=== PATIENT | male | born 1965 | race Caucasian/White ===

== ENCOUNTER 2017-03-13 03:35 | Inpatient (IN) | payer MEDICARE, MEDICAID ==
[~2017-03-13] VITALS: Ht 180.3 cm; Wt 68.2 kg
[~2017-03-13 03:35] MED LIST: DIAZ5TAB4 PO; FLUO20CA39 PO; OMEP20TA5 PO; TOLT4CAP PO; TOPI25TA15 PO
[2017-03-13] MEDS ORDERED: normal saline 1000ML IV soln IV ONE (03:40)
[2017-03-13] MEDS ORDERED: diphenhydrAMINE 50 mg/ml inj IV ONE (04:25)
[2017-03-13 05:01] LABS: BASOPHILS # (AUTO) 0.1 X10'3 (0-0.2); BASOPHILS % (AUTO) 0.2 % (0-1); EOSINOPHILS % (AUTO) 0 % (0-6); HEMATOCRIT 37.4 % (42.0-52.0); HEMOGLOBIN 12.6 g/dl (14.0-17.9); LYMPHOCYTES # (AUTO) 1.2 X10'3 (1.1-4.8); LYMPHOCYTES % (AUTO) 3.4 % (21-51); MEAN CORPUSCULAR HEMOGLOBIN 31.2 PG (27.0-31.0); MEAN CORPUSCULAR HGB CONC 33.6 % (33.0-36.5); MEAN CORPUSCULAR VOLUME 92.8 FL (78-98); MEAN PLATELET VOLUME 7.7 FL (7.4-10.4); MONOCYTES # (AUTO) 1.6 X10'3 (0-0.9); MONOCYTES % (AUTO) 4.4 % (2-12); NEUTROPHILS # (AUTO) 32.5 X10'3 (1.8-7.7); PLATELET COUNT 385 X10'3 (140-440); RED BLOOD COUNT 4.03 X10'6 (4.70-6.10); RED CELL DISTRIBUTION WIDTH 13.6 % (11.5-14.5)
[2017-03-13 05:13] LABS: INR 1.2 INR; PARTIAL THROMBOPLASTIN TIME 31 SECONDS (22-32); PROTHROMBIN TIME 12.1 SECONDS (9.0-12.0)
[2017-03-13 05:17] LABS: ALANINE AMINOTRANSFERASE 37 U/L (12-78); ALBUMIN 2.4 G/DL (3.4-5.0); ALBUMIN/GLOBULIN RATIO 0.6 (1.1-1.5); ALKALINE PHOSPHATASE 178 IU/L (46-116); ANION GAP 9 (8-16); ASPARTATE AMINO TRANSFERASE 22 U/L (10-37); BILIRUBIN,TOTAL 0.6 MG/DL (0.1-1.0); BLOOD UREA NITROGEN 26 MG/DL (7-18); BUN/CREATININE RATIO 28.9 (5.4-32.0); CALCIUM 8.4 MG/DL (8.5-10.1); CHLORIDE 103 MMOL/L (99-107); GLUCOSE 112 MG/DL (70-104); MAGNESIUM 1.9 MG/DL (1.5-2.4); POTASSIUM 3.5 MMOL/L (3.5-5.1); SODIUM 140 MMOL/L (135-145); TOTAL CARBON DIOXIDE 28.4 MMOL/L (24-32); TOTAL PROTEIN 6.6 G/DL (6.4-8.2); eGFR 89 ML/MIN
[2017-03-13 05:23] LABS: WHITE BLOOD COUNT 35.4 X10'3 (4.5-11.0)
[2017-03-13] MEDS ORDERED: haloperidol lactate 5mg/ml inj IM ONE (05:45)
[2017-03-13] MEDS ORDERED: LORazepam 2 mg/ml vial IV ONE (05:45)
[2017-03-13] MEDS ORDERED: vancomycin 1,000mg inj IV STA (05:58)
[2017-03-13] MEDS ORDERED: piperacillin/tazo 3.375gm/50ml 50 ML IV ONE ×2 (06:00→06:10)
[2017-03-13] MEDS ORDERED: NORMAL SALINE IV STA (06:09)
[2017-03-13] MEDS ORDERED: VANCOMYCIN IV STA (06:09)
[2017-03-13] MEDS ORDERED: VANCOMYCIN 750MG IV in NS 250 ML IV ONE (06:28)
[2017-03-13 06:58] LABS: PLATELET ESTIMATE NORMAL; TOTAL CELLS COUNTED 100
[2017-03-13] MEDS ORDERED: magnesium hydroxide 30ml (MOM) UD suspension PO PRN (09:00)
[2017-03-13] MEDS ORDERED: mag hydrox/Alum hydrox/simeth 30ml oral suspension PO PRN (09:00)
[2017-03-13] MEDS ORDERED: diphenhydrAMINE 50 mg/ml inj IV PRN (09:00)
[2017-03-13] MEDS ORDERED: diphenhydrAMINE 25mg capsule PO PRN (09:00)
[2017-03-13] MEDS ORDERED: ondansetron/PF 4mg/2ml inj IV PRN (09:00)
[2017-03-13] MEDS ORDERED: bisacodyl 10mg suppository rectal RC PRN (09:00)
[2017-03-13] MEDS ORDERED: acetaminophen 650mg rectal suppository RC PRN (09:00)
[2017-03-13] MEDS ORDERED: HYDROmorphone 1 mg/ml syringe IV PRN ×2 (09:00)
[2017-03-13] MEDS ORDERED: HYDROcodone/acetaminophen 5mg/325mg tablet PO PRN (09:00)
[2017-03-13] MEDS ORDERED: acetaminophen 325mg tablet PO PRN ×2 (09:00)
[2017-03-13] MEDS ORDERED: MESSAGE TO PHARMACY PO ONE (09:05)
[2017-03-13] MEDS ORDERED: insulin Lispro (HumaLOG) vial - multi-dose SQ SCH (09:05)
[2017-03-13] MEDS ORDERED: glucagon, human recombinant 1mg kit SUBCUT PRN (09:05)
[2017-03-13] MEDS ORDERED: dextrose 50%-water 50ml dispensing syringe IV PRN ×2 (09:05)
[2017-03-13] MEDS ORDERED: dextrose ORAL solution 15 GM/59 ML bottle PO PRN ×2 (09:05)
[2017-03-13 09:33] LABS: PHOSPHORUS 3.4 MG/DL (2.3-4.5)
[2017-03-13 10:17] LABS: HEMOGLOBIN A1C 5.8 % (4.5-6.2)
[2017-03-13] MEDS: normal saline 1000ml 1,000 ML IV SCH ×3 (10:22→20:56)
[2017-03-13 10:53] LABS: CLARITY,URINE SLIGHTLY CLOUDY (Clear); COLOR,URINE AMBER (Yellow); GLUCOSE, URINE NEGATIVE (Neg); KETONES,URINE NEGATIVE (Neg); LEUKOCYTE ESTERASE ,URINE NEGATIVE (Neg); NITRITES, URINE NEGATIVE (Neg); OCCULT BLOOD,URINE SMALL (Neg); PH,URINE 5.5 (4.8-8.0); PROTEIN,URINE TRACE mg/dl (Neg); UROBILINOGEN,URINE 0.2 E.U/dL (0.2-1.0)
[2017-03-13 10:58] LABS: UA COLLECTION TYPE STRAIGHT CATH
[2017-03-13 11:06] LABS: AMORPHOUS URATES 2+; BACTERIA,URINE NONE SEEN /HPF (Neg); HYALINE CASTS 0-3 /LPF (NEGATIVE); MUCUS STRANDS MODERATE /LPF (Neg); RBC,URINE 0-2 /HPF (0-2); SQUAMOUS EPITHELIAL CELL,UR NONE SEEN /LPF (FEW); WBC,URINE 0-4 /HPF (0-4)
[2017-03-13] MEDS: vancomycin 125mg/5ml ORAL solution 5ml UD bottle PO SCH ×3 (12:03→20:55)
[2017-03-13 14:27] LABS: OCCULT BLOOD STOOL NEGATIVE (Neg)
[2017-03-13 15:30] VITALS: BP 149/73
[2017-03-13] MEDS ORDERED: normal saline 500ml IV soln 500 ML IV ONE (18:50)
[2017-03-13 19:00] VITALS: BP 108/64
[2017-03-13] MEDS: docusate sod 100mg capsule PO SCH (20:00)
[2017-03-13] MEDS: heparin, porcine 5000 units/ml vial SQ SCH (20:54)
[2017-03-13] MEDS: LORazepam 2 mg/ml vial IV PRN (20:56)
[2017-03-13] MEDS ORDERED: temazepam 15mg capsule PO PRN (21:00)
[2017-03-14] MEDS: topiramate 25mg tablet PO SCH ×3 (00:10→22:30)
[2017-03-14] MEDS: LORazepam 2 mg/ml vial IV PRN (01:49)
[2017-03-14] MEDS: vancomycin 125mg/5ml ORAL solution 5ml UD bottle PO SCH ×3 (01:49→14:22)
[2017-03-14 06:00] VITALS: BP 102/61
[2017-03-14 07:08] LABS: BASOPHILS # (AUTO) 0.1 X10'3 (0-0.2); BASOPHILS % (AUTO) 0.6 % (0-1); EOSINOPHILS % (AUTO) 0.1 % (0-6); HEMATOCRIT 33.6 % (42.0-52.0); HEMOGLOBIN 11.2 g/dl (14.0-17.9); LYMPHOCYTES # (AUTO) 1.3 X10'3 (1.1-4.8); LYMPHOCYTES % (AUTO) 5.6 % (21-51); MEAN CORPUSCULAR HGB CONC 33.3 % (33.0-36.5); MEAN PLATELET VOLUME 7.4 FL (7.4-10.4); MONOCYTES # (AUTO) 1.2 X10'3 (0-0.9); MONOCYTES % (AUTO) 5.2 % (2-12); NEUTROPHILS # (AUTO) 20.9 X10'3 (1.8-7.7); NEUTROPHILS % (AUTO) 88.5 % (42-75); PLATELET COUNT 322 X10'3 (140-440); RED BLOOD COUNT 3.61 X10'6 (4.70-6.10); RED CELL DISTRIBUTION WIDTH 13.8 % (11.5-14.5); WHITE BLOOD COUNT 23.6 X10'3 (4.5-11.0)
[2017-03-14 07:26] LABS: ALANINE AMINOTRANSFERASE 36 U/L (12-78); ALBUMIN 1.9 G/DL (3.4-5.0); ALBUMIN/GLOBULIN RATIO 0.5 (1.1-1.5); ALKALINE PHOSPHATASE 125 IU/L (46-116); ANION GAP 8 (8-16); ASPARTATE AMINO TRANSFERASE 27 U/L (10-37); BILIRUBIN,TOTAL 0.5 MG/DL (0.1-1.0); BLOOD UREA NITROGEN 18 MG/DL (7-18); BUN/CREATININE RATIO 20.9 (5.4-32.0); CALCIUM 7.6 MG/DL (8.5-10.1); CHLORIDE 110 MMOL/L (99-107); CREATININE 0.86 MG/DL (0.60-1.10); GLUCOSE 81 MG/DL (70-104); POTASSIUM 3.1 MMOL/L (3.5-5.1); SODIUM 144 MMOL/L (135-145); TOTAL CARBON DIOXIDE 26.1 MMOL/L (24-32); TOTAL PROTEIN 5.6 G/DL (6.4-8.2); eGFR > 90 ML/MIN
[2017-03-14] MEDS: heparin, porcine 5000 units/ml vial SQ SCH ×2 (07:27→19:48)
[2017-03-14] MEDS: docusate sod 100mg capsule PO SCH ×2 (07:28→20:00)
[2017-03-14] MEDS: FLUoxetine 20mg capsule PO SCH (07:28)
[2017-03-14] MEDS: pantoprazole 40mg Tablet.DR PO SCH (07:28)
[2017-03-14] MEDS: diazepam 5mg tablet PO PRN ×2 (07:29→19:48)
[2017-03-14 07:47] LABS: TOTAL CELLS COUNTED 100
[2017-03-14 07:48] LABS: PLATELET ESTIMATE NORMAL; POIKILOCYTOSIS 1+; TOXIC GRANULATION 1+
[2017-03-14 08:00] VITALS: BP 118/66
[2017-03-14] MEDS: tolterodine 2mg SR capsule (24hr) PO SCH (08:18)
[2017-03-14] MEDS: normal saline 1000ml 1,000 ML IV SCH ×2 (08:32→12:13)
[2017-03-14] MEDS ORDERED: normal saline 1000ml 1,000 ML IVB ONE (09:32)
[2017-03-14] MEDS ORDERED: potassium Cl 20 mEq SR tablet PO PRN (09:35)
[2017-03-14] MEDS ORDERED: potassium Cl 40MEQ/NS 500ml 500 ML IV PRN (09:35)
[2017-03-14 09:37] LABS: C DIFF ANTIGEN POSITIVE (NEGATIVE); C DIFF SPECIMEN=DIARRHEA? ACCEPTABLE
[2017-03-14 09:39] LABS: C DIFFICILE TOXINS A&B POSITIVE (Neg)
[2017-03-14 11:00] VITALS: BP 121/79
[2017-03-14] MEDS: potassium Cl 20 mEq SR tablet PO PRN ×3 (12:37→22:30)
[2017-03-14 19:00] VITALS: BP 130/82
[2017-03-14] MEDS: vancomycin 250MG/10ML UD oral solution 10ML BOTTLE PO SCH (20:13)
[2017-03-15] VITALS: BP 116/86
[2017-03-15] MEDS: LORazepam 2 mg/ml vial IV PRN (00:18)
[2017-03-15] MEDS: normal saline 1000ml 1,000 ML IV SCH ×2 (01:24→20:56)
[2017-03-15] MEDS: vancomycin 250MG/10ML UD oral solution 10ML BOTTLE PO SCH ×4 (02:20→20:10)
[2017-03-15 06:09] LABS: BASOPHILS # (AUTO) 0.1 X10'3 (0-0.2); BASOPHILS % (AUTO) 0.6 % (0-1); EOSINOPHILS # (AUTO) 0.2 X10'3 (0-0.9); EOSINOPHILS % (AUTO) 1.6 % (0-6); HEMATOCRIT 34.7 % (42.0-52.0); HEMOGLOBIN 11.4 g/dl (14.0-17.9); LYMPHOCYTES # (AUTO) 1.1 X10'3 (1.1-4.8); LYMPHOCYTES % (AUTO) 9.2 % (21-51); MEAN CORPUSCULAR HEMOGLOBIN 30.6 PG (27.0-31.0); MEAN CORPUSCULAR HGB CONC 32.8 % (33.0-36.5); MEAN CORPUSCULAR VOLUME 93.5 FL (78-98); MEAN PLATELET VOLUME 7.7 FL (7.4-10.4); MONOCYTES # (AUTO) 0.5 X10'3 (0-0.9); MONOCYTES % (AUTO) 4.4 % (2-12); NEUTROPHILS # (AUTO) 10.2 X10'3 (1.8-7.7); NEUTROPHILS % (AUTO) 84.2 % (42-75); PLATELET COUNT 396 X10'3 (140-440); RED BLOOD COUNT 3.71 X10'6 (4.70-6.10); RED CELL DISTRIBUTION WIDTH 14.1 % (11.5-14.5); WHITE BLOOD COUNT 12.2 X10'3 (4.5-11.0)
[2017-03-15 06:35] LABS: ALANINE AMINOTRANSFERASE 34 U/L (12-78); ALBUMIN 1.9 G/DL (3.4-5.0); ALBUMIN/GLOBULIN RATIO 0.5 (1.1-1.5); ALKALINE PHOSPHATASE 107 IU/L (46-116); ANION GAP 7 (8-16); ASPARTATE AMINO TRANSFERASE 21 U/L (10-37); BILIRUBIN,TOTAL 0.4 MG/DL (0.1-1.0); BLOOD UREA NITROGEN 11 MG/DL (7-18); BUN/CREATININE RATIO 17.5 (5.4-32.0); CALCIUM 7.4 MG/DL (8.5-10.1); CHLORIDE 110 MMOL/L (99-107); CREATININE 0.63 MG/DL (0.60-1.10); GLUCOSE 87 MG/DL (70-104); SODIUM 143 MMOL/L (135-145); TOTAL CARBON DIOXIDE 25.7 MMOL/L (24-32); TOTAL PROTEIN 5.4 G/DL (6.4-8.2); eGFR > 90 ML/MIN
[2017-03-15 06:37] VITALS: BP 116/86
[2017-03-15 06:47] LABS: POTASSIUM 2.9 MMOL/L (3.5-5.1)
[2017-03-15 07:00] VITALS: BP 135/87
[2017-03-15] MEDS ORDERED: potassium Cl 20 mEq SR tablet PO PRN (07:40)
[2017-03-15] MEDS ORDERED: potassium Cl 40MEQ/NS 500ml 500 ML IV PRN ×2 (07:40)
[2017-03-15] MEDS: docusate sod 100mg capsule PO SCH ×2 (07:54→17:13)
[2017-03-15] MEDS ORDERED: K and/or MAG REPLACEMENT MC SCH (08:00)
[2017-03-15] MEDS: K and/or MAG REPLACEMENT MC SCH (08:00)
[2017-03-15] MEDS: heparin, porcine 5000 units/ml vial SQ SCH ×2 (08:01→20:11)
[2017-03-15] MEDS: topiramate 25mg tablet PO SCH ×2 (08:02→20:11)
[2017-03-15] MEDS: pantoprazole 40mg Tablet.DR PO SCH (08:02)
[2017-03-15] MEDS: FLUoxetine 20mg capsule PO SCH (08:02)
[2017-03-15] MEDS: diazepam 5mg tablet PO PRN (08:02)
[2017-03-15] MEDS: tolterodine 2mg SR capsule (24hr) PO SCH (08:03)
[2017-03-15] MEDS: potassium Cl 40MEQ/NS 500ml 500 ML IV PRN ×2 (08:11→17:07)
[2017-03-15 11:00] VITALS: BP 106/61
[2017-03-15 19:00] VITALS: BP 138/94
[2017-03-15] MEDS: potassium chloride 10mEq CAPSULE.SA PO SCH (20:11)
[2017-03-16] VITALS: BP 140/85
[2017-03-16] MEDS: vancomycin 250MG/10ML UD oral solution 10ML BOTTLE PO SCH ×4 (01:46→20:32)
[2017-03-16 05:43] LABS: BASOPHILS % (AUTO) 0.4 % (0-1); EOSINOPHILS # (AUTO) 0.2 X10'3 (0-0.9); EOSINOPHILS % (AUTO) 2.2 % (0-6); HEMATOCRIT 36.1 % (42.0-52.0); HEMOGLOBIN 12.1 g/dl (14.0-17.9); LYMPHOCYTES # (AUTO) 1.4 X10'3 (1.1-4.8); LYMPHOCYTES % (AUTO) 15.5 % (21-51); MEAN CORPUSCULAR HEMOGLOBIN 30.9 PG (27.0-31.0); MEAN CORPUSCULAR HGB CONC 33.4 % (33.0-36.5); MEAN CORPUSCULAR VOLUME 92.5 FL (78-98); MEAN PLATELET VOLUME 7.8 FL (7.4-10.4); MONOCYTES # (AUTO) 0.6 X10'3 (0-0.9); MONOCYTES % (AUTO) 6.6 % (2-12); NEUTROPHILS # (AUTO) 6.6 X10'3 (1.8-7.7); NEUTROPHILS % (AUTO) 75.3 % (42-75); PLATELET COUNT 422 X10'3 (140-440); RED CELL DISTRIBUTION WIDTH 13.9 % (11.5-14.5); WHITE BLOOD COUNT 8.8 X10'3 (4.5-11.0)
[2017-03-16 06:15] LABS: ALANINE AMINOTRANSFERASE 32 U/L (12-78); ALBUMIN 1.8 G/DL (3.4-5.0); ALBUMIN/GLOBULIN RATIO 0.5 (1.1-1.5); ALKALINE PHOSPHATASE 95 IU/L (46-116); ANION GAP 5 (8-16); ASPARTATE AMINO TRANSFERASE 23 U/L (10-37); BILIRUBIN,TOTAL 0.4 MG/DL (0.1-1.0); BLOOD UREA NITROGEN 4 MG/DL (7-18); BUN/CREATININE RATIO 7.4 (5.4-32.0); CALCIUM 7.8 MG/DL (8.5-10.1); CHLORIDE 109 MMOL/L (99-107); CREATININE 0.54 MG/DL (0.60-1.10); GLUCOSE 86 MG/DL (70-104); POTASSIUM 3.2 MMOL/L (3.5-5.1); SODIUM 140 MMOL/L (135-145); TOTAL CARBON DIOXIDE 26.2 MMOL/L (24-32); TOTAL PROTEIN 5.3 G/DL (6.4-8.2); eGFR > 90 ML/MIN
[2017-03-16 08:00] VITALS: BP 137/99
[2017-03-16] MEDS: K and/or MAG REPLACEMENT MC SCH (08:00)
[2017-03-16] MEDS ORDERED: potassium chloride 10mEq CAPSULE.SA PO SCH (08:00)
[2017-03-16] MEDS: normal saline 1000ml 1,000 ML IV SCH ×2 (08:29→17:08)
[2017-03-16] MEDS: docusate sod 100mg capsule PO SCH ×2 (08:30→20:00)
[2017-03-16] MEDS: tolterodine 2mg SR capsule (24hr) PO SCH (08:30)
[2017-03-16] MEDS: pantoprazole 40mg Tablet.DR PO SCH (08:31)
[2017-03-16] MEDS: topiramate 25mg tablet PO SCH ×2 (08:31→20:33)
[2017-03-16] MEDS: potassium chloride 10mEq CAPSULE.SA PO SCH ×2 (08:31→20:33)
[2017-03-16] MEDS: FLUoxetine 20mg capsule PO SCH (08:31)
[2017-03-16] MEDS: LACTOBACILLUS RHAMNOSUS GG 15 billion unit sprinkle caps PO SCH (08:31)
[2017-03-16] MEDS: heparin, porcine 5000 units/ml vial SQ SCH ×2 (08:32→20:32)
[2017-03-16 11:00] VITALS: BP 99/63
[2017-03-16] MEDS ORDERED: normal saline 1000ml 1,000 ML IVB ONE (12:25)
[2017-03-16 20:00] VITALS: BP_SYST 120; BP_SYST 137; BP_DIAS 60; BP_DIAS 81
[2017-03-17] VITALS: BP 131/93
[2017-03-17] MEDS: vancomycin 250MG/10ML UD oral solution 10ML BOTTLE PO SCH ×3 (01:36→14:00)
[2017-03-17] MEDS: normal saline 1000ml 1,000 ML IV SCH ×3 (01:37→18:43)
[2017-03-17 06:18] LABS: BASOPHILS % (AUTO) 0.5 % (0-1); EOSINOPHILS # (AUTO) 0.2 X10'3 (0-0.9); HEMATOCRIT 37.7 % (42.0-52.0); HEMOGLOBIN 12.6 g/dl (14.0-17.9); LYMPHOCYTES # (AUTO) 1.6 X10'3 (1.1-4.8); LYMPHOCYTES % (AUTO) 21.5 % (21-51); MEAN CORPUSCULAR HEMOGLOBIN 30.8 PG (27.0-31.0); MEAN CORPUSCULAR HGB CONC 33.3 % (33.0-36.5); MEAN CORPUSCULAR VOLUME 92.6 FL (78-98); MONOCYTES # (AUTO) 0.6 X10'3 (0-0.9); NEUTROPHILS # (AUTO) 5.1 X10'3 (1.8-7.7); PLATELET COUNT 441 X10'3 (140-440); RED BLOOD COUNT 4.07 X10'6 (4.70-6.10); RED CELL DISTRIBUTION WIDTH 13.8 % (11.5-14.5); WHITE BLOOD COUNT 7.4 X10'3 (4.5-11.0)
[2017-03-17 06:39] LABS: ALANINE AMINOTRANSFERASE 84 U/L (12-78); ALBUMIN 1.9 G/DL (3.4-5.0); ALBUMIN/GLOBULIN RATIO 0.5 (1.1-1.5); ALKALINE PHOSPHATASE 91 IU/L (46-116); ANION GAP 5 (8-16); ASPARTATE AMINO TRANSFERASE 89 U/L (10-37); BILIRUBIN,TOTAL 0.3 MG/DL (0.1-1.0); BLOOD UREA NITROGEN 5 MG/DL (7-18); BUN/CREATININE RATIO 8.3 (5.4-32.0); CALCIUM 7.9 MG/DL (8.5-10.1); CHLORIDE 107 MMOL/L (99-107); GLUCOSE 83 MG/DL (70-104); POTASSIUM 3.2 MMOL/L (3.5-5.1); SODIUM 139 MMOL/L (135-145); TOTAL CARBON DIOXIDE 26.8 MMOL/L (24-32); TOTAL PROTEIN 5.4 G/DL (6.4-8.2); eGFR > 90 ML/MIN
[2017-03-17 07:30] VITALS: BP 146/95
[2017-03-17] MEDS: LACTOBACILLUS RHAMNOSUS GG 15 billion unit sprinkle caps PO SCH (07:35)
[2017-03-17] MEDS: pantoprazole 40mg Tablet.DR PO SCH ×2 (07:35→09:18)
[2017-03-17] MEDS: FLUoxetine 20mg capsule PO SCH (07:35)
[2017-03-17] MEDS: docusate sod 100mg capsule PO SCH ×2 (07:35→20:00)
[2017-03-17] MEDS: heparin, porcine 5000 units/ml vial SQ SCH ×2 (07:39→20:29)
[2017-03-17] MEDS: K and/or MAG REPLACEMENT MC SCH (09:00)
[2017-03-17] MEDS: tolterodine 2mg SR capsule (24hr) PO SCH (09:00)
[2017-03-17] MEDS: potassium chloride 10mEq CAPSULE.SA PO SCH ×2 (09:18→20:29)
[2017-03-17] MEDS: topiramate 25mg tablet PO SCH ×2 (09:18→20:29)
[2017-03-17 11:00] VITALS: BP 122/75
[2017-03-17 19:45] VITALS: BP 128/85
[2017-03-17] MEDS: vancomycin 125mg/5ml ORAL solution 5ml UD bottle PO SCH (20:28)
[2017-03-17] MEDS: potassium Cl 20 mEq SR tablet PO PRN (22:11)
[2017-03-18] VITALS: BP 141/91
[2017-03-18] MEDS: potassium Cl 20 mEq SR tablet PO PRN (02:35)
[2017-03-18] MEDS: vancomycin 125mg/5ml ORAL solution 5ml UD bottle PO SCH ×4 (02:35→21:40)
[2017-03-18] MEDS: HYDROcodone/acetaminophen 10/325mg tab PO PRN ×3 (02:53→21:42)
[2017-03-18] MEDS: normal saline 1000ml 1,000 ML IV SCH ×3 (03:10→21:46)
[2017-03-18 06:18] LABS: BASOPHILS % (AUTO) 0.7 % (0-1); EOSINOPHILS # (AUTO) 0.2 X10'3 (0-0.9); EOSINOPHILS % (AUTO) 2.3 % (0-6); HEMATOCRIT 38.4 % (42.0-52.0); HEMOGLOBIN 12.7 g/dl (14.0-17.9); LYMPHOCYTES # (AUTO) 1.7 X10'3 (1.1-4.8); LYMPHOCYTES % (AUTO) 23.2 % (21-51); MEAN CORPUSCULAR HEMOGLOBIN 30.5 PG (27.0-31.0); MEAN CORPUSCULAR VOLUME 92.5 FL (78-98); MEAN PLATELET VOLUME 7.8 FL (7.4-10.4); MONOCYTES # (AUTO) 0.6 X10'3 (0-0.9); MONOCYTES % (AUTO) 7.8 % (2-12); NEUTROPHILS # (AUTO) 4.8 X10'3 (1.8-7.7); PLATELET COUNT 457 X10'3 (140-440); RED BLOOD COUNT 4.16 X10'6 (4.70-6.10); RED CELL DISTRIBUTION WIDTH 13.9 % (11.5-14.5); WHITE BLOOD COUNT 7.3 X10'3 (4.5-11.0)
[2017-03-18 06:51] LABS: ALANINE AMINOTRANSFERASE 117 U/L (12-78); ALBUMIN/GLOBULIN RATIO 0.6 (1.1-1.5); ALKALINE PHOSPHATASE 87 IU/L (46-116); ANION GAP 4 (8-16); ASPARTATE AMINO TRANSFERASE 101 U/L (10-37); BILIRUBIN,TOTAL 0.2 MG/DL (0.1-1.0); BLOOD UREA NITROGEN 7 MG/DL (7-18); BUN/CREATININE RATIO 11.7 (5.4-32.0); CHLORIDE 107 MMOL/L (99-107); GLUCOSE 87 MG/DL (70-104); POTASSIUM 3.5 MMOL/L (3.5-5.1); SODIUM 139 MMOL/L (135-145); TOTAL CARBON DIOXIDE 27.7 MMOL/L (24-32); TOTAL PROTEIN 5.6 G/DL (6.4-8.2); eGFR > 90 ML/MIN
[2017-03-18 07:00] VITALS: BP 144/94
[2017-03-18] MEDS: K and/or MAG REPLACEMENT MC SCH (08:00)
[2017-03-18] MEDS: docusate sod 100mg capsule PO SCH (08:00)
[2017-03-18] MEDS: potassium chloride 10mEq CAPSULE.SA PO SCH ×2 (09:24→21:40)
[2017-03-18] MEDS: FLUoxetine 20mg capsule PO SCH (09:24)
[2017-03-18] MEDS: tolterodine 2mg SR capsule (24hr) PO SCH (09:24)
[2017-03-18] MEDS: LACTOBACILLUS RHAMNOSUS GG 15 billion unit sprinkle caps PO SCH (09:24)
[2017-03-18] MEDS: heparin, porcine 5000 units/ml vial SQ SCH ×2 (09:25→21:41)
[2017-03-18] MEDS: topiramate 25mg tablet PO SCH ×2 (09:27→21:41)
[2017-03-18 12:42] VITALS: BP 99/51
[2017-03-18 18:00] VITALS: BP 146/96
[2017-03-19] VITALS: BP 127/79
[2017-03-19] MEDS: vancomycin 125mg/5ml ORAL solution 5ml UD bottle PO SCH ×4 (01:48→22:09)
[2017-03-19] MEDS: LORazepam 2 mg/ml vial IV PRN (02:05)
[2017-03-19] MEDS: potassium chloride 10mEq CAPSULE.SA PO SCH ×2 (07:20→22:09)
[2017-03-19] MEDS: heparin, porcine 5000 units/ml vial SQ SCH ×2 (07:20→22:10)
[2017-03-19] MEDS: HYDROcodone/acetaminophen 10/325mg tab PO PRN ×3 (07:20→22:16)
[2017-03-19] MEDS: tolterodine 2mg SR capsule (24hr) PO SCH (07:20)
[2017-03-19] MEDS: LACTOBACILLUS RHAMNOSUS GG 15 billion unit sprinkle caps PO SCH (07:21)
[2017-03-19] MEDS: topiramate 25mg tablet PO SCH ×2 (07:21→22:10)
[2017-03-19] MEDS: FLUoxetine 20mg capsule PO SCH (07:22)
[2017-03-19] MEDS: pantoprazole 40mg Tablet.DR PO SCH (07:22)
[2017-03-19] MEDS: normal saline 1000ml 1,000 ML IV SCH ×2 (07:23→14:35)
[2017-03-19] MEDS: K and/or MAG REPLACEMENT MC SCH (08:00)
[2017-03-19 13:13] VITALS: BP 102/64
[2017-03-19 18:00] VITALS: BP 137/90
[2017-03-19] MEDS: mineral oil/petrolatum, white cream 113gm jar TP SCH (20:00)
[2017-03-20] VITALS: BP 120/63
[2017-03-20] MEDS: LORazepam 2 mg/ml vial IV PRN ×2 (01:12→23:05)
[2017-03-20] MEDS: vancomycin 125mg/5ml ORAL solution 5ml UD bottle PO SCH ×4 (02:56→21:41)
[2017-03-20] MEDS: mineral oil/petrolatum, white cream 113gm jar TP SCH ×2 (08:00→21:40)
[2017-03-20] MEDS: K and/or MAG REPLACEMENT MC SCH (08:00)
[2017-03-20 08:26] VITALS: BP 90/60
[2017-03-20] MEDS: potassium chloride 10mEq CAPSULE.SA PO SCH ×2 (10:32→21:41)
[2017-03-20] MEDS: topiramate 25mg tablet PO SCH ×2 (10:33→21:42)
[2017-03-20] MEDS: LACTOBACILLUS RHAMNOSUS GG 15 billion unit sprinkle caps PO SCH (10:33)
[2017-03-20] MEDS: pantoprazole 40mg Tablet.DR PO SCH (10:33)
[2017-03-20] MEDS: tolterodine 2mg SR capsule (24hr) PO SCH (10:34)
[2017-03-20] MEDS: FLUoxetine 20mg capsule PO SCH (10:35)
[2017-03-20] MEDS: heparin, porcine 5000 units/ml vial SQ SCH ×2 (10:36→21:43)
[2017-03-20 11:00] VITALS: BP 129/81
[2017-03-20] MEDS: normal saline 1000ml 1,000 ML IV SCH (15:08)
[2017-03-20 18:00] VITALS: BP 117/72
[2017-03-20] MEDS: HYDROcodone/acetaminophen 10/325mg tab PO PRN (21:41)
[2017-03-21] VITALS: BP 92/70
[2017-03-21] MEDS: vancomycin 125mg/5ml ORAL solution 5ml UD bottle PO SCH ×4 (02:17→20:34)
[2017-03-21] MEDS: normal saline 1000ml 1,000 ML IV SCH ×2 (03:36→11:16)
[2017-03-21] MEDS: LORazepam 2 mg/ml vial IV PRN ×4 (05:11→20:41)
[2017-03-21 07:57] VITALS: BP 127/76
[2017-03-21] MEDS: K and/or MAG REPLACEMENT MC SCH (08:00)
[2017-03-21] MEDS: LACTOBACILLUS RHAMNOSUS GG 15 billion unit sprinkle caps PO SCH (09:59)
[2017-03-21] MEDS: potassium chloride 10mEq CAPSULE.SA PO SCH ×2 (09:59→20:34)
[2017-03-21] MEDS: topiramate 25mg tablet PO SCH ×2 (09:59→20:34)
[2017-03-21] MEDS: tolterodine 2mg SR capsule (24hr) PO SCH (10:00)
[2017-03-21] MEDS: pantoprazole 40mg Tablet.DR PO SCH (10:00)
[2017-03-21] MEDS: FLUoxetine 20mg capsule PO SCH (10:01)
[2017-03-21] MEDS: heparin, porcine 5000 units/ml vial SQ SCH ×2 (10:03→20:34)
[2017-03-21] MEDS: mineral oil/petrolatum, white cream 113gm jar TP SCH ×2 (10:03→20:34)
[2017-03-21 11:43] VITALS: BP 136/84
[2017-03-21 18:00] VITALS: BP 116/83
[2017-03-21 23:00] VITALS: BP 109/66
[2017-03-22] MEDS: normal saline 1000ml 1,000 ML IV SCH ×2 (00:20→12:22)
[2017-03-22] MEDS: vancomycin 125mg/5ml ORAL solution 5ml UD bottle PO SCH ×4 (02:35→20:31)
[2017-03-22 06:04] LABS: BASOPHILS # (AUTO) 0.1 X10'3 (0-0.2); BASOPHILS % (AUTO) 0.6 % (0-1); EOSINOPHILS # (AUTO) 0.3 X10'3 (0-0.9); EOSINOPHILS % (AUTO) 3.2 % (0-6); HEMATOCRIT 38.2 % (42.0-52.0); HEMOGLOBIN 12.9 g/dl (14.0-17.9); LYMPHOCYTES # (AUTO) 2.1 X10'3 (1.1-4.8); LYMPHOCYTES % (AUTO) 25.4 % (21-51); MEAN CORPUSCULAR HEMOGLOBIN 31.3 PG (27.0-31.0); MEAN CORPUSCULAR HGB CONC 33.8 % (33.0-36.5); MEAN CORPUSCULAR VOLUME 92.6 FL (78-98); MEAN PLATELET VOLUME 7.5 FL (7.4-10.4); MONOCYTES # (AUTO) 0.7 X10'3 (0-0.9); NEUTROPHILS # (AUTO) 5.2 X10'3 (1.8-7.7); NEUTROPHILS % (AUTO) 62.8 % (42-75); PLATELET COUNT 451 X10'3 (140-440); RED BLOOD COUNT 4.13 X10'6 (4.70-6.10); RED CELL DISTRIBUTION WIDTH 13.5 % (11.5-14.5); WHITE BLOOD COUNT 8.2 X10'3 (4.5-11.0)
[2017-03-22 06:33] LABS: ALANINE AMINOTRANSFERASE 94 U/L (12-78); ALBUMIN 2.5 G/DL (3.4-5.0); ALBUMIN/GLOBULIN RATIO 0.7 (1.1-1.5); ALKALINE PHOSPHATASE 95 IU/L (46-116); ANION GAP 8 (8-16); ASPARTATE AMINO TRANSFERASE 48 U/L (10-37); BILIRUBIN,TOTAL 0.3 MG/DL (0.1-1.0); BLOOD UREA NITROGEN 10 MG/DL (7-18); BUN/CREATININE RATIO 16.7 (5.4-32.0); CALCIUM 8.6 MG/DL (8.5-10.1); CHLORIDE 104 MMOL/L (99-107); GLUCOSE 89 MG/DL (70-104); POTASSIUM 3.8 MMOL/L (3.5-5.1); SODIUM 137 MMOL/L (135-145); TOTAL CARBON DIOXIDE 24.6 MMOL/L (24-32); TOTAL PROTEIN 6.2 G/DL (6.4-8.2); eGFR > 90 ML/MIN
[2017-03-22 07:11] VITALS: BP 108/70
[2017-03-22] MEDS: tolterodine 2mg SR capsule (24hr) PO SCH (07:30)
[2017-03-22] MEDS: pantoprazole 40mg Tablet.DR PO SCH (07:30)
[2017-03-22] MEDS: FLUoxetine 20mg capsule PO SCH (07:30)
[2017-03-22] MEDS: potassium chloride 10mEq CAPSULE.SA PO SCH ×2 (07:30→20:31)
[2017-03-22] MEDS: HYDROcodone/acetaminophen 10/325mg tab PO PRN ×4 (07:30→22:08)
[2017-03-22] MEDS: LACTOBACILLUS RHAMNOSUS GG 15 billion unit sprinkle caps PO SCH (07:30)
[2017-03-22] MEDS: topiramate 25mg tablet PO SCH ×2 (07:30→20:31)
[2017-03-22] MEDS: heparin, porcine 5000 units/ml vial SQ SCH ×2 (07:31→20:31)
[2017-03-22] MEDS: K and/or MAG REPLACEMENT MC SCH (08:00)
[2017-03-22] MEDS: mineral oil/petrolatum, white cream 113gm jar TP SCH ×2 (08:38→20:31)
[2017-03-22] MEDS: LORazepam 2 mg/ml vial IV PRN ×2 (14:30→22:17)
[2017-03-22 20:00] VITALS: BP 96/54
[2017-03-22] MEDS ORDERED: LORazepam 2 mg/ml vial IM PRN (22:40)
[2017-03-23] MEDS: vancomycin 125mg/5ml ORAL solution 5ml UD bottle PO SCH ×4 (01:41→19:25)
[2017-03-23] MEDS: diazepam 5mg tablet PO PRN ×2 (02:52→19:25)
[2017-03-23 05:41] LABS: BASOPHILS % (AUTO) 0.5 % (0-1); EOSINOPHILS # (AUTO) 0.2 X10'3 (0-0.9); EOSINOPHILS % (AUTO) 2.9 % (0-6); HEMATOCRIT 35.3 % (42.0-52.0); HEMOGLOBIN 11.6 g/dl (14.0-17.9); LYMPHOCYTES # (AUTO) 2.1 X10'3 (1.1-4.8); LYMPHOCYTES % (AUTO) 33.7 % (21-51); MEAN CORPUSCULAR HEMOGLOBIN 30.8 PG (27.0-31.0); MEAN CORPUSCULAR VOLUME 93.5 FL (78-98); MEAN PLATELET VOLUME 7.6 FL (7.4-10.4); MONOCYTES # (AUTO) 0.5 X10'3 (0-0.9); MONOCYTES % (AUTO) 8.4 % (2-12); NEUTROPHILS # (AUTO) 3.4 X10'3 (1.8-7.7); NEUTROPHILS % (AUTO) 54.5 % (42-75); PLATELET COUNT 450 X10'3 (140-440); RED BLOOD COUNT 3.78 X10'6 (4.70-6.10); RED CELL DISTRIBUTION WIDTH 14.1 % (11.5-14.5); WHITE BLOOD COUNT 6.3 X10'3 (4.5-11.0)
[2017-03-23 06:21] LABS: ALANINE AMINOTRANSFERASE 77 U/L (12-78); ALBUMIN 2.4 G/DL (3.4-5.0); ALBUMIN/GLOBULIN RATIO 0.7 (1.1-1.5); ALKALINE PHOSPHATASE 77 IU/L (46-116); ANION GAP 6 (8-16); ASPARTATE AMINO TRANSFERASE 34 U/L (10-37); BILIRUBIN,TOTAL 0.3 MG/DL (0.1-1.0); BLOOD UREA NITROGEN 11 MG/DL (7-18); BUN/CREATININE RATIO 15.7 (5.4-32.0); CALCIUM 8.6 MG/DL (8.5-10.1); CHLORIDE 104 MMOL/L (99-107); GLUCOSE 93 MG/DL (70-104); SODIUM 138 MMOL/L (135-145); TOTAL CARBON DIOXIDE 28.2 MMOL/L (24-32); TOTAL PROTEIN 5.8 G/DL (6.4-8.2); eGFR > 90 ML/MIN
[2017-03-23 07:00] VITALS: BP 141/101
[2017-03-23] MEDS: K and/or MAG REPLACEMENT MC SCH (07:03)
[2017-03-23] MEDS: normal saline 1000ml 1,000 ML IV SCH ×2 (08:56→20:45)
[2017-03-23] MEDS: FLUoxetine 20mg capsule PO SCH (09:32)
[2017-03-23] MEDS: topiramate 25mg tablet PO SCH ×2 (09:33→20:47)
[2017-03-23] MEDS: tolterodine 2mg SR capsule (24hr) PO SCH (09:33)
[2017-03-23] MEDS: potassium chloride 10mEq CAPSULE.SA PO SCH ×2 (09:34→19:25)
[2017-03-23] MEDS: pantoprazole 40mg Tablet.DR PO SCH (09:34)
[2017-03-23] MEDS: LACTOBACILLUS RHAMNOSUS GG 15 billion unit sprinkle caps PO SCH (09:36)
[2017-03-23] MEDS: mineral oil/petrolatum, white cream 113gm jar TP SCH ×2 (09:39→19:25)
[2017-03-23] MEDS: heparin, porcine 5000 units/ml vial SQ SCH ×2 (09:39→20:00)
[2017-03-23 11:30] VITALS: BP 107/64
[2017-03-23] MEDS: oxybutynin 5mg tablet PO SCH ×3 (14:22→20:44)
[2017-03-23] MEDS: HYDROcodone/acetaminophen 10/325mg tab PO PRN ×2 (17:43→23:00)
[2017-03-23 20:00] VITALS: BP 148/86
[2017-03-24] VITALS: BP 110/61
[2017-03-24] MEDS: vancomycin 125mg/5ml ORAL solution 5ml UD bottle PO SCH ×4 (02:17→23:23)
[2017-03-24 05:58] LABS: BASOPHILS # (AUTO) 0.1 X10'3 (0-0.2); BASOPHILS % (AUTO) 0.8 % (0-1); EOSINOPHILS # (AUTO) 0.2 X10'3 (0-0.9); HEMATOCRIT 41.1 % (42.0-52.0); LYMPHOCYTES # (AUTO) 2.7 X10'3 (1.1-4.8); LYMPHOCYTES % (AUTO) 34.1 % (21-51); MEAN CORPUSCULAR HEMOGLOBIN 31.4 PG (27.0-31.0); MEAN CORPUSCULAR HGB CONC 34.1 % (33.0-36.5); MEAN CORPUSCULAR VOLUME 92.3 FL (78-98); MEAN PLATELET VOLUME 7.7 FL (7.4-10.4); MONOCYTES # (AUTO) 0.6 X10'3 (0-0.9); NEUTROPHILS # (AUTO) 4.4 X10'3 (1.8-7.7); NEUTROPHILS % (AUTO) 55.1 % (42-75); PLATELET COUNT 492 X10'3 (140-440); RED BLOOD COUNT 4.45 X10'6 (4.70-6.10); RED CELL DISTRIBUTION WIDTH 14.2 % (11.5-14.5); WHITE BLOOD COUNT 7.9 X10'3 (4.5-11.0)
[2017-03-24] MEDS: LACTOBACILLUS RHAMNOSUS GG 15 billion unit sprinkle caps PO SCH (06:28)
[2017-03-24] MEDS: pantoprazole 40mg Tablet.DR PO SCH (06:28)
[2017-03-24] MEDS: HYDROcodone/acetaminophen 10/325mg tab PO PRN (06:29)
[2017-03-24 06:33] LABS: ALANINE AMINOTRANSFERASE 81 U/L (12-78); ALBUMIN/GLOBULIN RATIO 0.7 (1.1-1.5); ALKALINE PHOSPHATASE 98 IU/L (46-116); ANION GAP 7 (8-16); ASPARTATE AMINO TRANSFERASE 32 U/L (10-37); BILIRUBIN,TOTAL 0.3 MG/DL (0.1-1.0); BLOOD UREA NITROGEN 13 MG/DL (7-18); BUN/CREATININE RATIO 18.6 (5.4-32.0); CALCIUM 9.4 MG/DL (8.5-10.1); CHLORIDE 102 MMOL/L (99-107); GLUCOSE 95 MG/DL (70-104); POTASSIUM 4.6 MMOL/L (3.5-5.1); SODIUM 139 MMOL/L (135-145); TOTAL CARBON DIOXIDE 30.1 MMOL/L (24-32); TOTAL PROTEIN 7.2 G/DL (6.4-8.2); eGFR > 90 ML/MIN
[2017-03-24] MEDS: K and/or MAG REPLACEMENT MC SCH (07:39)
[2017-03-24 08:00] VITALS: BP 122/72
[2017-03-24] MEDS: FLUoxetine 20mg capsule PO SCH (08:01)
[2017-03-24] MEDS: topiramate 25mg tablet PO SCH ×2 (08:02→23:24)
[2017-03-24] MEDS: potassium chloride 10mEq CAPSULE.SA PO SCH ×2 (08:03→23:23)
[2017-03-24] MEDS: oxybutynin 5mg tablet PO SCH ×4 (08:03→23:24)
[2017-03-24] MEDS: heparin, porcine 5000 units/ml vial SQ SCH ×2 (08:04→23:26)
[2017-03-24] MEDS: mineral oil/petrolatum, white cream 113gm jar TP SCH ×2 (08:07→23:27)
[2017-03-24] MEDS: diazepam 5mg tablet PO PRN (10:55)
[2017-03-24 11:00] VITALS: BP 121/82
[2017-03-24] MEDS: normal saline 1000ml 1,000 ML IV SCH (11:36)
[2017-03-24 18:00] VITALS: BP 112/46
[2017-03-25] VITALS: BP 106/69
[2017-03-25] MEDS: vancomycin 125mg/5ml ORAL solution 5ml UD bottle PO SCH ×3 (03:26→14:47)
[2017-03-25] MEDS: diazepam 5mg tablet PO PRN ×2 (03:29→11:55)
[2017-03-25 06:02] LABS: BASOPHILS # (AUTO) 0.1 X10'3 (0-0.2); BASOPHILS % (AUTO) 0.8 % (0-1); EOSINOPHILS # (AUTO) 0.2 X10'3 (0-0.9); EOSINOPHILS % (AUTO) 2.5 % (0-6); HEMATOCRIT 40.1 % (42.0-52.0); HEMOGLOBIN 13.7 g/dl (14.0-17.9); LYMPHOCYTES # (AUTO) 2.3 X10'3 (1.1-4.8); LYMPHOCYTES % (AUTO) 27.5 % (21-51); MEAN CORPUSCULAR HEMOGLOBIN 31.5 PG (27.0-31.0); MEAN CORPUSCULAR HGB CONC 34.2 % (33.0-36.5); MEAN CORPUSCULAR VOLUME 92.2 FL (78-98); MEAN PLATELET VOLUME 7.8 FL (7.4-10.4); MONOCYTES # (AUTO) 0.5 X10'3 (0-0.9); MONOCYTES % (AUTO) 5.9 % (2-12); NEUTROPHILS # (AUTO) 5.3 X10'3 (1.8-7.7); NEUTROPHILS % (AUTO) 63.3 % (42-75); PLATELET COUNT 480 X10'3 (140-440); RED BLOOD COUNT 4.35 X10'6 (4.70-6.10); RED CELL DISTRIBUTION WIDTH 14.4 % (11.5-14.5); WHITE BLOOD COUNT 8.4 X10'3 (4.5-11.0)
[2017-03-25 06:42] LABS: ALANINE AMINOTRANSFERASE 72 U/L (12-78); ALBUMIN 2.8 G/DL (3.4-5.0); ALBUMIN/GLOBULIN RATIO 0.7 (1.1-1.5); ALKALINE PHOSPHATASE 90 IU/L (46-116); ANION GAP 6 (8-16); ASPARTATE AMINO TRANSFERASE 29 U/L (10-37); BILIRUBIN,TOTAL 0.3 MG/DL (0.1-1.0); BLOOD UREA NITROGEN 19 MG/DL (7-18); BUN/CREATININE RATIO 23.8 (5.4-32.0); CALCIUM 9.2 MG/DL (8.5-10.1); CHLORIDE 100 MMOL/L (99-107); GLUCOSE 88 MG/DL (70-104); POTASSIUM 4.1 MMOL/L (3.5-5.1); SODIUM 138 MMOL/L (135-145); TOTAL CARBON DIOXIDE 32.2 MMOL/L (24-32); TOTAL PROTEIN 6.7 G/DL (6.4-8.2); eGFR > 90 ML/MIN
[2017-03-25] MEDS: K and/or MAG REPLACEMENT MC SCH (07:14)
[2017-03-25 08:00] VITALS: BP 100/62
[2017-03-25] MEDS: potassium chloride 10mEq CAPSULE.SA PO SCH (08:36)
[2017-03-25] MEDS: topiramate 25mg tablet PO SCH (08:36)
[2017-03-25] MEDS: pantoprazole 40mg Tablet.DR PO SCH (08:36)
[2017-03-25] MEDS: LACTOBACILLUS RHAMNOSUS GG 15 billion unit sprinkle caps PO SCH (08:36)
[2017-03-25] MEDS: oxybutynin 5mg tablet PO SCH ×3 (08:37→17:00)
[2017-03-25] MEDS: FLUoxetine 20mg capsule PO SCH (08:37)
[2017-03-25] MEDS: heparin, porcine 5000 units/ml vial SQ SCH (08:37)
[2017-03-25] MEDS: mineral oil/petrolatum, white cream 113gm jar TP SCH (08:38)
[2017-03-25 11:15] VITALS: BP 97/71
== END 2017-03-25 18:22 | DRG 871 ==
LOC: ER 03:36 → ED HOLD 08:56 → SUR 3N 14:20
PROVIDERS: ADMIT Family Medicine; ATTEND Family Medicine
DX: A41.9 Sepsis, unspecified organism (principal); G93.40 Encephalopathy, unspecified; E43 Unspecified severe protein-calorie malnutrition; L89.159 Pressure ulcer of sacral region, unspecified stage; A04.71 Enterocolitis due to Clostridium difficile, recurrent; E86.0 Dehydration; G11.9 Hereditary ataxia, unspecified; J98.11 Atelectasis; L03.115 Cellulitis of right lower limb; L03.116 Cellulitis of left lower limb; D64.9 Anemia, unspecified; E11.9 Type 2 diabetes mellitus without complications; E87.6 Hypokalemia; G80.9 Cerebral palsy, unspecified; I10 Essential (primary) hypertension; K21.9 Gastro-esophageal reflux disease without esophagitis; F32.9 Major depressive disorder, single episode, unspecified; F41.9 Anxiety disorder, unspecified; R74.0 Nonspecific elevation of levels of transaminase and lactic acid dehydrogenase [LDH]; R79.89 Other specified abnormal findings of blood chemistry; Z66 Do not resuscitate; Z79.899 Other long term (current) drug therapy; Z79.01 Long term (current) use of anticoagulants; Z68.21 Body mass index [BMI] 21.0-21.9, adult
CPT/HCPCS: 36415; 70450; 71045; 71046; 71250; 74018; 74176; 80053; 81001; 81003; 82272; 82948; 83036; 83605; 83735; 83880; 84100; 84145; 84443; 85025; 85610; 85730; 87040; 87070; 87324; 87449; 93005; 96361; 96365; 96368; 96372; 96375; 99285; A4353; A6212; A6213; A6255; A6258; J1200; J1630; J1644; J2060; J2543; J3370; J3480; J7030

== ENCOUNTER 2017-04-25 19:16 | Inpatient (IN) | payer MEDICARE, MEDICAID ==
[~2017-04-25] VITALS: Ht 175.3 cm; Wt 54.5 kg
[2017-04-25] MEDS ORDERED: normal saline 1000ML IV soln IV ONE (20:10)
[2017-04-25] MEDS ORDERED: levoFLOXACIN-Levaquin 750MG/D5 150 ML IV ONE (20:10)
[2017-04-25 20:34] LABS: BASOPHILS % (AUTO) 0 % (0-1); EOSINOPHILS % (AUTO) 0.5 % (0-6); HEMATOCRIT 32.8 % (42.0-52.0); HEMOGLOBIN 11.3 g/dl (14.0-17.9); LYMPHOCYTES # (AUTO) 0.2 X10'3 (1.1-4.8); LYMPHOCYTES % (AUTO) 2.7 % (21-51); MEAN CORPUSCULAR HEMOGLOBIN 31.5 PG (27.0-31.0); MEAN CORPUSCULAR HGB CONC 34.4 % (33.0-36.5); MEAN CORPUSCULAR VOLUME 91.5 FL (78-98); MEAN PLATELET VOLUME 7.9 FL (7.4-10.4); MONOCYTES # (AUTO) 0.2 X10'3 (0-0.9); MONOCYTES % (AUTO) 3.8 % (2-12); NEUTROPHILS # (AUTO) 5.9 X10'3 (1.8-7.7); PLATELET COUNT 249 X10'3 (140-440); RED BLOOD COUNT 3.58 X10'6 (4.70-6.10); RED CELL DISTRIBUTION WIDTH 15.2 % (11.5-14.5); WHITE BLOOD COUNT 6.4 X10'3 (4.5-11.0)
[2017-04-25] MEDS ORDERED: levoFLOXACIN-Levaquin 750MG/D5 150 ML IV STA (21:14)
[2017-04-25 21:37] LABS: INR 1.1 INR; PARTIAL THROMBOPLASTIN TIME 35 SECONDS (22-32); PROTHROMBIN TIME 11.6 SECONDS (9.0-12.0)
[2017-04-25 21:49] LABS: ALANINE AMINOTRANSFERASE 49 U/L (12-78); ALBUMIN 2.5 G/DL (3.4-5.0); ALBUMIN/GLOBULIN RATIO 0.6 (1.1-1.5); ALKALINE PHOSPHATASE 78 IU/L (46-116); ANION GAP 6 (8-16); ASPARTATE AMINO TRANSFERASE 51 U/L (10-37); BILIRUBIN,TOTAL 0.2 MG/DL (0.1-1.0); BLOOD UREA NITROGEN 25 MG/DL (7-18); BUN/CREATININE RATIO 32.5 (5.4-32.0); CALCIUM 8.3 MG/DL (8.5-10.1); CHLORIDE 96 MMOL/L (99-107); CREATININE 0.77 MG/DL (0.60-1.10); GLUCOSE 104 MG/DL (70-104); MAGNESIUM 1.7 MG/DL (1.5-2.4); POTASSIUM 4.3 MMOL/L (3.5-5.1); SODIUM 131 MMOL/L (135-145); TOTAL CARBON DIOXIDE 29.3 MMOL/L (24-32); TOTAL PROTEIN 6.9 G/DL (6.4-8.2); eGFR > 90 ML/MIN
[2017-04-25] MEDS ORDERED: LORazepam 2 mg/ml vial IV ONE (22:55)
[2017-04-25] MEDS ORDERED: oseltamivir phos 75mg capsule PO ONE (23:15)
[2017-04-26 00:06] LABS: CLARITY,URINE CLEAR (Clear); COLOR,URINE YELLOW (Yellow); GLUCOSE, URINE NEGATIVE (Neg); KETONES,URINE NEGATIVE (Neg); LEUKOCYTE ESTERASE ,URINE NEGATIVE (Neg); NITRITES, URINE NEGATIVE (Neg); OCCULT BLOOD,URINE NEGATIVE (Neg); PROTEIN,URINE TRACE mg/dl (Neg); UROBILINOGEN,URINE 0.2 E.U/dL (0.2-1.0)
[2017-04-26 00:08] LABS: UA COLLECTION TYPE STRAIGHT CATH
[2017-04-26] MEDS ORDERED: HYDROmorphone inj. 0.5 MG/0.5 ML DISP.SYRIN IV PRN ×2 (00:10)
[2017-04-26] MEDS ORDERED: bisacodyl 10mg suppository rectal RC PRN (00:10)
[2017-04-26] MEDS ORDERED: HYDROcodone/acetaminophen 5mg/325mg tablet PO PRN (00:10)
[2017-04-26] MEDS ORDERED: diphenhydrAMINE 25mg capsule PO PRN (00:10)
[2017-04-26] MEDS ORDERED: acetaminophen 325mg tablet PO PRN (00:10)
[2017-04-26] MEDS ORDERED: mag hydrox/Alum hydrox/simeth 30ml oral suspension PO PRN (00:10)
[2017-04-26] MEDS ORDERED: diphenhydrAMINE 50 mg/ml inj IV PRN (00:10)
[2017-04-26] MEDS ORDERED: metoclopramide 5 mg/ml inj IV PRN (00:10)
[2017-04-26] MEDS ORDERED: magnesium hydroxide 30ml (MOM) UD suspension PO PRN (00:10)
[2017-04-26] MEDS ORDERED: insulin Lispro (HumaLOG) vial - multi-dose SQ SCH (00:10)
[2017-04-26] MEDS ORDERED: dextrose 50%-water 50ml dispensing syringe IV PRN ×2 (00:10)
[2017-04-26] MEDS ORDERED: HYDROcodone/acetaminophen 10/325mg tab PO PRN (00:10)
[2017-04-26] MEDS ORDERED: glucagon, human recombinant 1mg kit SUBCUT PRN (00:10)
[2017-04-26] MEDS ORDERED: acetaminophen 650mg rectal suppository RC PRN (00:10)
[2017-04-26] MEDS ORDERED: ondansetron/PF 4mg/2ml inj IV PRN (00:10)
[2017-04-26] MEDS ORDERED: dextrose ORAL solution 15 GM/59 ML bottle PO PRN ×2 (00:10)
[2017-04-26] MEDS ORDERED: MESSAGE TO PHARMACY PO ONE (00:10)
[2017-04-26 00:17] LABS: BACTERIA,URINE FEW /HPF (Neg); RBC,URINE 0-2 /HPF (0-2); SQUAMOUS EPITHELIAL CELL,UR FEW /LPF (FEW); WBC,URINE 0-4 /HPF (0-4)
[2017-04-26] MEDS: normal saline 1000ml 1,000 ML IV SCH ×3 (00:21→20:06)
[2017-04-26] MEDS: LORazepam 2 mg/ml vial IV PRN ×2 (00:45→10:50)
[2017-04-26 01:47] LABS: LIPASE 138 U/L (73-393); PHOSPHORUS 3.5 MG/DL (2.3-4.5)
[2017-04-26] MEDS ORDERED: MAGN800O PO (06:22)
[2017-04-26] MEDS ORDERED: CLOT15CR73 TP (06:24)
[2017-04-26] MEDS ORDERED: MULT-1085 PO (06:26)
[2017-04-26] MEDS ORDERED: HYDR-569 PO (06:27)
[2017-04-26] MEDS ORDERED: OXYB5TAB11 PO (06:29)
[2017-04-26] MEDS ORDERED: POTA10TA19 PO (06:29)
[2017-04-26] MEDS ORDERED: CETI-102 PO (06:31)
[2017-04-26] MEDS: topiramate 25mg tablet PO SCH (08:00)
[2017-04-26] MEDS: oxybutynin 5mg tablet PO SCH ×4 (09:17→21:00)
[2017-04-26] MEDS: pantoprazole 40mg Tablet.DR PO SCH (09:17)
[2017-04-26] MEDS: docusate sod 100mg capsule PO SCH ×2 (09:17→20:00)
[2017-04-26] MEDS: oseltamivir phos 75mg capsule PO SCH ×2 (09:18→20:00)
[2017-04-26] MEDS: FLUoxetine 20mg capsule PO SCH (09:18)
[2017-04-26] MEDS: heparin, porcine 5000 units/ml vial SQ SCH ×2 (10:11→22:54)
[2017-04-26] MEDS: lactobacillus rhamnosus 10,000 MMU CELLS/CAPSULE PO SCH (17:30)
[2017-04-26] MEDS ORDERED: albuterol 2.5 MG/3 ML nebule NEB PRN (19:05)
[2017-04-26 19:30] VITALS: BP 137/73
[2017-04-26] MEDS ORDERED: temazepam 15mg capsule PO PRN (21:00)
[2017-04-26] MEDS ORDERED: levoFLOXACIN-Levaquin 500mg/D5 100 ML IV SCH (21:00)
[2017-04-26] MEDS ORDERED: LORazepam 2 mg/ml vial IM PRN (21:40)
[2017-04-27] VITALS: BP 97/67
[2017-04-27] MEDS: normal saline 1000ml 1,000 ML IV SCH (02:19)
[2017-04-27] MEDS: LORazepam 2 mg/ml vial IV PRN (03:36)
[2017-04-27 04:01] VITALS: BP 122/66
[2017-04-27 05:22] LABS: BASOPHILS % (AUTO) 0.1 % (0-1); EOSINOPHILS % (AUTO) 0 % (0-6); HEMATOCRIT 35.8 % (42.0-52.0); HEMOGLOBIN 12.2 g/dl (14.0-17.9); LYMPHOCYTES # (AUTO) 0.4 X10'3 (1.1-4.8); LYMPHOCYTES % (AUTO) 8.7 % (21-51); MEAN CORPUSCULAR HEMOGLOBIN 31.1 PG (27.0-31.0); MEAN CORPUSCULAR VOLUME 91.4 FL (78-98); MEAN PLATELET VOLUME 8.1 FL (7.4-10.4); MONOCYTES # (AUTO) 0.1 X10'3 (0-0.9); MONOCYTES % (AUTO) 2.5 % (2-12); NEUTROPHILS # (AUTO) 3.7 X10'3 (1.8-7.7); NEUTROPHILS % (AUTO) 88.7 % (42-75); PLATELET COUNT 210 X10'3 (140-440); RED BLOOD COUNT 3.92 X10'6 (4.70-6.10); RED CELL DISTRIBUTION WIDTH 15.4 % (11.5-14.5); WHITE BLOOD COUNT 4.2 X10'3 (4.5-11.0)
[2017-04-27 05:52] LABS: ALANINE AMINOTRANSFERASE 46 U/L (12-78); ALBUMIN/GLOBULIN RATIO 0.5 (1.1-1.5); ALKALINE PHOSPHATASE 81 IU/L (46-116); ANION GAP 8 (8-16); ASPARTATE AMINO TRANSFERASE 67 U/L (10-37); BILIRUBIN,TOTAL 0.2 MG/DL (0.1-1.0); BLOOD UREA NITROGEN 21 MG/DL (7-18); BUN/CREATININE RATIO 36.8 (5.4-32.0); CHLORIDE 100 MMOL/L (99-107); CREATININE 0.57 MG/DL (0.60-1.10); GLUCOSE 61 MG/DL (70-104); POTASSIUM 4.1 MMOL/L (3.5-5.1); SODIUM 135 MMOL/L (135-145); TOTAL CARBON DIOXIDE 26.9 MMOL/L (24-32); TOTAL PROTEIN 5.9 G/DL (6.4-8.2); eGFR > 90 ML/MIN
[2017-04-27] MEDS: lactobacillus rhamnosus 10,000 MMU CELLS/CAPSULE PO SCH (06:33)
[2017-04-27] MEDS: pantoprazole 40mg Tablet.DR PO SCH (06:33)
[2017-04-27] MEDS: docusate sod 100mg capsule PO SCH (06:33)
[2017-04-27] MEDS: oxybutynin 5mg tablet PO SCH (06:34)
[2017-04-27] MEDS: oseltamivir phos 75mg capsule PO SCH ×2 (06:34→20:54)
[2017-04-27] MEDS: FLUoxetine 20mg capsule PO SCH (06:34)
[2017-04-27] MEDS: topiramate 25mg tablet PO SCH (06:34)
[2017-04-27 08:00] VITALS: BP 118/71
[2017-04-27 20:00] VITALS: BP 113/60
[2017-04-27] MEDS: morphine 2 MG/ML inj. syringe IV PRN (20:55)
[2017-04-28] MEDS: LORazepam 2 mg/ml vial IV PRN ×2 (00:50→09:05)
[2017-04-28 07:49] VITALS: BP 107/60
[2017-04-28] MEDS: oseltamivir phos 75mg capsule PO SCH ×2 (08:50→19:45)
[2017-04-28] MEDS: morphine 2 MG/ML inj. syringe IV PRN ×3 (09:06→17:52)
[2017-04-28 10:55] VITALS: BP 86/57
[2017-04-28 11:00] VITALS: BP 86/57
[2017-04-28 13:13] VITALS: BP 81/32
[2017-04-28 18:03] VITALS: BP 83/44
[2017-04-28 20:00] VITALS: BP 81/58
[2017-04-29] MEDS: oseltamivir phos 75mg capsule PO SCH ×2 (07:12→21:13)
[2017-04-29] MEDS: morphine 2 MG/ML inj. syringe IV PRN (07:13)
[2017-04-29 08:00] VITALS: BP 111/98
[2017-04-29] MEDS ORDERED: morphine 4 MG/ML inj SYRINge IV PRN ×2 (11:10)
[2017-04-29] MEDS: LORazepam 2 mg/ml vial IV PRN (13:32)
[2017-04-29 20:00] VITALS: BP 123/88
[2017-04-29] MEDS: diazepam 5mg tablet PO PRN (23:39)
[2017-04-30] MEDS: morphine IR (immed. release) 30mg tablet PO PRN ×3 (04:29→16:37)
[2017-04-30 08:00] VITALS: BP 118/64
[2017-04-30] MEDS: oseltamivir phos 75mg capsule PO SCH ×2 (11:19→20:00)
[2017-04-30] MEDS: diazepam 5mg tablet PO PRN (12:39)
[2017-04-30 18:00] VITALS: BP 107/71
[2017-05-01 07:00] VITALS: BP 115/74
[2017-05-01] MEDS: oseltamivir phos 75mg capsule PO SCH ×2 (08:00→20:00)
[2017-05-01 18:00] VITALS: BP 104/56
[2017-05-01] MEDS: morphine 10mg/0.5ml (conc. morphine) oral syringe PO PRN (20:40)
[2017-05-02 07:28] VITALS: BP 136/82
[2017-05-02] MEDS: oseltamivir phos 75mg capsule PO SCH ×2 (08:00→20:00)
[2017-05-02 11:15] VITALS: BP 131/71
[2017-05-02] MEDS: morphine 10mg/0.5ml (conc. morphine) oral syringe PO PRN ×3 (16:08→23:29)
[2017-05-02 19:00] VITALS: BP 104/70
[2017-05-03] MEDS: morphine 10mg/0.5ml (conc. morphine) oral syringe PO PRN ×5 (02:13→22:13)
[2017-05-03] MEDS: oseltamivir phos 75mg capsule PO SCH ×2 (08:00→19:58)
[2017-05-03 09:19] VITALS: BP 134/76
[2017-05-03 19:00] VITALS: BP 108/65
[2017-05-04 07:39] VITALS: BP 121/70
[2017-05-04] MEDS: oseltamivir phos 75mg capsule PO SCH (08:00)
[2017-05-04] MEDS: morphine 10mg/0.5ml (conc. morphine) oral syringe PO PRN ×2 (14:25→16:23)
== END 2017-05-04 16:45 | disposition expired | DRG 193 ==
LOC: ER 19:16 → ED HOLD 04-26 00:06 → SUR 3N 04-26 14:36
PROVIDERS: ADMIT Family Medicine; ATTEND Internal Medicine
DX: J10.00 Influenza due to other identified influenza virus with unspecified type of pneumonia (principal); J96.20 Acute and chronic respiratory failure, unspecified whether with hypoxia or hypercapnia; L89.319 Pressure ulcer of right buttock, unspecified stage; L89.152 Pressure ulcer of sacral region, stage 2; E44.0 Moderate protein-calorie malnutrition; R64 Cachexia; L89.329 Pressure ulcer of left buttock, unspecified stage; G11.1 Early-onset cerebellar ataxia; E87.1 Hypo-osmolality and hyponatremia; Z68.1 Body mass index [BMI] 19.9 or less, adult; E86.0 Dehydration; J18.9 Pneumonia, unspecified organism; I10 Essential (primary) hypertension; E11.9 Type 2 diabetes mellitus without complications; K21.9 Gastro-esophageal reflux disease without esophagitis; L89.899 Pressure ulcer of other site, unspecified stage; K59.00 Constipation, unspecified; R09.02 Hypoxemia; F32.9 Major depressive disorder, single episode, unspecified; F41.9 Anxiety disorder, unspecified; Z51.5 Encounter for palliative care; Z66 Do not resuscitate; Z79.899 Other long term (current) drug therapy; Z79.4 Long term (current) use of insulin
CPT/HCPCS: 36415; 71045; 71250; 74176; 80053; 81001; 81003; 82948; 83605; 83690; 83735; 83880; 84100; 84145; 84443; 84484; 85025; 85610; 85730; 87040; 87070; 87502; 87503; 92616; 93005; 94760; 96365; 96366; 96375; 99285; A4353; A4649; A6212; A6213; J1170; J1644; J1956; J2060; J2270; J2405; J7030